=== PATIENT | male | born 1965 | race Two or more races ===

== ENCOUNTER 2018-01-16 10:53 | Emergency (ER) | payer OTHER ==
[~2018-01-16] VITALS: Ht 180.3 cm; Wt 79.8 kg
[~2018-01-16 10:53] MED LIST: VITAMIN473 ML PO
== END 2018-01-16 12:23 | disposition home or self-care (01) ==
LOC: ER 10:53
DX: S40.012A Contusion of left shoulder, initial encounter (principal); S80.212A Abrasion, left knee, initial encounter; V19.9XXA Pedal cyclist (driver) (passenger) injured in unspecified traffic accident, initial encounter; Y93.89 Activity, other specified; Y92.488 Other paved roadways as the place of occurrence of the external cause; Y99.8 Other external cause status

== ENCOUNTER 2022-05-30 15:20 | Emergency (ER) | payer OTHER ==
[~2022-05-30] VITALS: Ht 180.3 cm; Wt 85.3 kg
== END 2022-05-30 21:14 | disposition left against medical advice (07) ==
LOC: ER 15:20
DX: R10.9 Unspecified abdominal pain (principal)